=== PATIENT | male | born 1970 | race Caucasian/White ===

== ENCOUNTER 2024-06-15 10:59 | Emergency (ER) | payer BC ==
[2024-06-15] MEDS ORDERED: HYDROcodone/Acetaminophen 10/325 mg Tablet ONE (12:41)
== END 2024-06-15 12:46 | disposition home or self-care (01) ==
LOC: MADERS 10:59 → EDBD 10:59 → MADERS 12:46
DX: S20.212A Contusion of left front wall of thorax, initial encounter (principal); I10 Essential (primary) hypertension; E11.9 Type 2 diabetes mellitus without complications; W19.XXXA Unspecified fall, initial encounter
CPT/HCPCS: 71046